=== PATIENT | female | born 1980 | race Two or more races ===

== ENCOUNTER → 2020-04-26 | Outpatient (CLI) | payer OTHER ==
[~2020-04-26] MED LIST: DICL50TA2 PO; MULT-449 PO
[2020-04-26 12:43] LABS: BASOPHILS # (AUTO) 0.04 x10^3/uL (0-0.1); BASOPHILS % (AUTO) 1 % (0-1); EOSINOPHILS % (AUTO) 1 % (1-7); LYMPHOCYTES # (AUTO) 1.64 x10^3/uL (1-3.4); LYMPHOCYTES % (AUTO) 20 % (22-44); MD NO; MEAN CORPUSCULAR HEMOGLOBIN 33.8 pg (27.0-34.8); MEAN CORPUSCULAR HGB CONC 33.8 g/dL (32.4-35.8); MEAN PLATELET VOLUME 9.1 fL (7.4-10.4); MONOCYTES # (AUTO) 0.64 x10^3/uL (0.2-0.8); MONOCYTES % (AUTO) 8 % (2-9); NEUTROPHILS # (AUTO) 5.79 x10^3/uL (1.8-6.8); NEUTROPHILS % (AUTO) 71 % (42-75); PLATELET COUNT 259 x10^3/uL (130-400); RED BLOOD COUNT 4.36 x10^6/uL (3.82-5.3); RED CELL DISTRIBUTION WIDTH 12.6 % (9.6-15.2)
== END | disposition home or self-care (01) ==
LOC: STAR 11:31
PROVIDERS: ATTEND Obstetrics & Gynecology
DX: Z01.812 Encounter for preprocedural laboratory examination (principal); Z20.828 Contact with and (suspected) exposure to other viral communicable diseases; N94.6 Dysmenorrhea, unspecified; R93.89 Abnormal findings on diagnostic imaging of other specified body structures
CPT/HCPCS: 36415; 84703; 85025; 87635

== ENCOUNTER 2020-05-01 12:34 | Day surgery (SDC) | payer OTHER ==
[~2020-05-01] VITALS: Ht 157.5 cm; Wt 78.5 kg
[2020-05-01] MEDS ORDERED: LACTATED RINGERS 1,000 ML IV SCH (13:04)
[2020-05-01 13:06] VITALS: BP 119/71
[2020-05-01] MEDS ORDERED: PREN1TAB84 PO (13:27)
[2020-05-01] MEDS ORDERED: CHOL10003 PO (13:27)
[2020-05-01] MEDS ORDERED: CHLORHEXIDINE 15 ML UDC MM ONE (13:30)
[2020-05-01 13:36] LABS: HCG UR SG 1.016 (1.003-1.030)
[2020-05-01] MEDS ORDERED: SILVER NITRATE STICK TP ONE (13:53)
[2020-05-01] MEDS ORDERED: EPINEPHRINE 1 MG/ML, 1ML ONE (13:53)
[2020-05-01] MEDS ORDERED: BUPIVACAINE/PF 0.25% ONE (13:53)
[2020-05-01] MEDS ORDERED: FENTANYL PF 250 MCG/5ML ONE (14:58)
[2020-05-01] MEDS ORDERED: MIDAZOLAM 1 MG/ML, 2ML ONE (14:58)
[2020-05-01] MEDS ORDERED: ONDANSETRON 2MG/ML, 2ML IVPush PRN (15:00)
[2020-05-01] MEDS ORDERED: FENTANYL PF 100 MCG/2ML IV PRN (15:00)
[2020-05-01] MEDS ORDERED: MEPERIDINE/PF 25MG/0.5ML IVPush PRN (15:00)
[2020-05-01] MEDS ORDERED: OXYcodone 5 MG/5 ML ORAL.SOL UDC PO PRN (15:00)
[2020-05-01] MEDS ORDERED: ACETAMINOPHEN 325 MG TABLET PO PRN (15:00)
[2020-05-01] MEDS ORDERED: DIAZEPAM 5 MG/ML, 2ML IVPush PRN (15:00)
[2020-05-01] MEDS ORDERED: PROMETHAZINE 25 MG/ML, 1ML IVPush PRN (15:00)
[2020-05-01] MEDS ORDERED: HYDROmorphone 1 MG/ML, 1ML INJ IVPush PRN (15:00)
[2020-05-01] MEDS ORDERED: PROPOFOL 10 MG/ML, 20ML ONE (15:16)
[2020-05-01] MEDS ORDERED: CEFAZOLIN 1,000 MG ONE (15:16)
[2020-05-01] MEDS ORDERED: ONDANSETRON 2MG/ML, 2ML ONE (15:16)
[2020-05-01] MEDS ORDERED: DEXAMETHASONE 4 MG/ML, 5ML ONE (15:16)
[2020-05-01] MEDS ORDERED: ROCURONIUM 10 MG/ML,10ML ONE (15:16)
[2020-05-01] MEDS ORDERED: SUGAMMADEX 200 MG/2 ML IVPush ONE (15:16)
[2020-05-01] MEDS ORDERED: OXYcodone 5 MG/5 ML ORAL.SOL UDC ONE (16:14)
[2020-05-01] MEDS ORDERED: FENTANYL PF 100 MCG/2ML ONE (16:14)
[2020-05-01] MEDS ORDERED: ACETAMINOPHEN 325 MG TABLET ONE (16:18)
[2020-05-01] MEDS ORDERED: DIPHENHYDRAMINE 50 MG/ML, 1ML ONE (16:38)
[2020-05-01] MEDS ORDERED: DIPHENHYDRAMINE 50 MG/ML, 1ML IVPush ONE (17:00)
[2020-05-01] MEDS ORDERED: [UNRECOGNIZED DRUG - REMARK] MC SCH (17:00)
== END 2020-05-01 18:40 | disposition home or self-care (01) ==
LOC: OUT 12:34
PROVIDERS: ATTEND Obstetrics & Gynecology
DX: N94.6 Dysmenorrhea, unspecified (principal); N92.0 Excessive and frequent menstruation with regular cycle; N84.0 Polyp of corpus uteri; Z88.8 Allergy status to other drugs, medicaments and biological substances; Z98.890 Other specified postprocedural states; Z79.899 Other long term (current) drug therapy; Z72.0 Tobacco use
CPT/HCPCS: 36415; 58558; 81025; 86850; 86900; 88305; J0171; J0690; J1100; J1200; J2250; J2405; J2704; J3010; J3490; J7120